=== PATIENT | female | born 1935 | race Caucasian/White ===

== ENCOUNTER 2017-12-13 08:52 | Day surgery (SDC) | payer OTHER ==
[2017-12-13] MEDS: BETADINE OPTH PREP OP PRN ×2 (10:00→10:13)
[2017-12-13] MEDS: TETRACAINE 0.5% UNIT-DOSE OP PRN ×2 (10:00→10:13)
[2017-12-13] MEDS: CYCLOGYL 2% OPTH OP PRN ×3 (10:01→10:11)
[2017-12-13] MEDS ORDERED: BSS WITH EPINEPHRINE OP ONE (10:13)
[2017-12-13] MEDS ORDERED: DEX-MOXI-KETOR OPTH INJ 1/0.5/0.4 MG/ML IO ONE (10:13)
[2017-12-13] MEDS ORDERED: LIDOCAINE 1% 20 ML MDV ID STA (10:13)
[2017-12-13] MEDS ORDERED: ZOFRAN 4 MG/2 ML IVP ONE (10:13)
[2017-12-13] MEDS ORDERED: LIDOCAINE 1%/PHENYLEPHRINE 1.5% BSS (SURGERY) INTRAOCULA ONE (10:13)
[2017-12-13] MEDS ORDERED: BRIMONIDINE TARTRATE 0.2% OPTH SOL OP PRN (10:13)
[2017-12-13] MEDS ORDERED: SUBLIMAZE ONE (10:20)
[2017-12-13] MEDS ORDERED: VERSED ONE (10:20)
[2017-12-13 16:38] VITALS: BP 123/56
== END 2017-12-13 11:10 | disposition home or self-care (01) ==
LOC: SURG 08:52
PROVIDERS: ATTEND Ophthalmology
DX: H25.813 Combined forms of age-related cataract, bilateral (principal)

== ENCOUNTER 2017-12-27 09:16 | Day surgery (SDC) ==
[2017-12-27] MEDS: TETRACAINE 0.5% UNIT-DOSE OP PRN ×2 (10:20→10:41)
[2017-12-27] MEDS: CYCLOGYL 2% OPTH OP PRN ×3 (10:21→10:31)
[2017-12-27] MEDS ORDERED: SUBLIMAZE ONE (10:50)
[2017-12-27] MEDS ORDERED: VERSED ONE (10:50)
[2017-12-27] MEDS ORDERED: DEX-MOXI-KETOR OPTH INJ 1/0.5/0.4 MG/ML IO ONE (11:02)
[2017-12-27] MEDS ORDERED: BRIMONIDINE TARTRATE 0.2% OPTH SOL OP PRN (11:02)
[2017-12-27] MEDS ORDERED: LIDOCAINE 1%/PHENYLEPHRINE 1.5% BSS (SURGERY) INTRAOCULA ONE (11:02)
[2017-12-27] MEDS ORDERED: LIDOCAINE 1% 20 ML MDV ID STA (11:02)
[2017-12-27] MEDS ORDERED: BSS WITH EPINEPHRINE OP ONE (11:02)
[2017-12-27] MEDS ORDERED: BETADINE OPTH PREP OP PRN (11:02)
[2017-12-27] MEDS ORDERED: ZOFRAN 4 MG/2 ML IVP ONE (11:02)
[2017-12-27 14:01] VITALS: TEMP 98.7
[2018-01-04 14:44] VITALS: BP 122/78
== END 2017-12-27 11:40 | disposition home or self-care (01) ==
LOC: SURG 09:16
PROVIDERS: ATTEND Ophthalmology
DX: H25.812 Combined forms of age-related cataract, left eye (principal)